=== PATIENT | male | born 1965 | race Caucasian/White ===

== ENCOUNTER 2017-11-15 18:36 | Emergency (ER) | payer SELFPAY ==
[~2017-11-15] VITALS: Ht 177.8 cm; Wt 79.6 kg
[2017-11-15] MEDS ORDERED: KEFLEX500 MG PO (21:18)
[2017-11-15] MEDS ORDERED: PERCOCET 5/31 TABLET PO (21:19)
[2017-11-15 21:32] VITALS: BP 125/79
== END 2017-11-15 21:33 | disposition home or self-care (01) ==
LOC: EME 18:36
DX: S62.630B Displaced fracture of distal phalanx of right index finger, initial encounter for open fracture (principal); W23.0XXA Caught, crushed, jammed, or pinched between moving objects, initial encounter; Z23 Encounter for immunization
CPT/HCPCS: 73140; 99281; 99284; S0020